=== PATIENT | female | born 1960 | race Two or more races ===

== ENCOUNTER 2019-05-26 20:34 | Inpatient (IN) | payer MEDICAID, MEDICARE, OTHER ==
[~2019-05-26] VITALS: Ht 167.6 cm; Wt 101.3 kg
--- NOTE | 2019-05-26 20:39 | PHYS DOC ---
Past History Past Medical History: Angina, Anxiety, UTI, Other Adult General Chief Complaint Chief Complaint: ".. I am having neck and upper chest pain... .." .. I ve been feeling more short of breath... ".. " I take nitro for my chest pain... ".. " But I just feel worse tonight.. ".. HPI HPI Patient is a 59 year old female who presents with above hx and complaints upper chest and neck pain. Patient states her discomfort is been persistent all day today and tonight. Patient does have a history of angina like complaints which she takes nitroglycerin. Patient denies history of heart attack. Patient has had a chemical stress test 2 years ago in [facility]. -, reportedly normal. He recently moved here from [place]. Patient has a history of elevated cholesterol. Patient denies any trauma or specific ill contacts. Patient's states sore throat also started approximately 2 days ago. Patient normally follo ws with Dr. Chaves. Review of Systems Review of Systems Constitutional: Denies fever or chills [] Eyes: Denies change in visual acuity, redness, or eye pain [] HENT: Denies nasal congestion. Complaints of sore throat [] Respiratory: Denies cough. Complaints shortness of breath [] Cardiovascular: No additional information not addressed in HPI [] GI: Denies abdominal pain, nausea, vomiting, bloody stools or diarrhea [] : Denies dysuria or hematuria [] Musculoskeletal: Denies back pain or joint pain [] Integument: Denies rash or skin lesions [] Neurologic: Denies headache, focal weakness or sensory changes [] Endocrine: Denies polyuria or polydipsia [] All other systems were reviewed and found to be within normal limits, except as documented in this note. Family History Family History Noncontributory Current Medications Current Medications See nursing for home meds Allergies Allergies Tramadol Physical Exam Physical Exam Constitutional: Moderate acute distress, non-toxic appearance. [] HENT: Normocephalic, atraumatic, bilateral external ears normal, oropharynx moist, mild postnasal drip and erythema, no oral exudates, nose mild injection of turbinates and clear rhinorrhea] Eyes: PERRLA, EOMI, conjunctiva normal, no discharge. [] Neck: Normal range of motion, no tenderness, supple, no stridor. [] Cardiovascular:Heart rate regular rhythm, no murmur []PMI to the left Lungs & Thorax: Bilateral breath sounds equal at apexes with a few scattered wheezes on auscultation [] Abdomen: Bowel sounds normal, soft, no tenderness, no masses, no pulsatile masses. []Obese. Skin: Warm, dry, no erythema, no rash. [] Back: No tenderness, no CVA tenderness. [] Extremities: No tenderness, no cyanosis, no clubbing, ROM intact, no edema. []No cording appreciated in legs Neurologic: Alert and oriented X 3, normal motor function, normal sensory function, no focal deficits noted. [] Psychologic: Affect very anxious, judgement normal, mood normal. [] EKG EKG My interpretation EKG shows a sinus rhythm at 77 beats per minute. No findings acute STEMI with contralateral changes.[] Radiology/Procedures Radiology/Procedures [][place] [address] IMAGING REPORT Signed PATIENT: BRITTNEY BOONE ACCOUNT: [id number] : 1960 LOCATION: ER AGE: 59 SEX: F EXAM STATUS: REG ER ORD. PHYSICIAN: NATY CARNEY MD REASON: pain, COUGH, H/O ASTHMA PROCEDURE: CHEST PA & LATERAL EXAM: Chest, 2 views. HISTORY: Cough. COMPARISON: None. FINDINGS: 2 views of chest are obtained. There is no infiltrate, pleural effusion or pneumothorax. The heart is normal in size. IMPRESSION: No acute pulmonary finding. Electronically signed by: Aruna Mosley MD (05/26/2019 10:24 PM) [facility] DICTATED AND SIGNED BY: ARUNA MOSLEY MD DATE: 05/26/192223 CC: NATY CARNEY MD; PCP,NO ~ Course & Med Decision Making Course & Med Decision Making Pertinent Labs and Imaging studies reviewed. (See chart for details) [] Admit to Dr. Rodriguez with Cardiology consult. Heart Score 4-5. Patient refused admission. However on discharge, Pt. decided to stay when her chest discomfort seems to be getting worse. Patient readmitted to Dr. Rodriguez with a cardiology consult Impression: 1. Chest Pain- atypical 2. Hx of Anginal Chest Pain- (Take Nitro ) 3. UTI 4. DM = glu 154 5. Sore Throat Dragon Disclaimer Dragon Disclaimer This electronic medical record was generated, in whole or in part, using a voice recognition dictation system. Departure Departure: Disposition: 01 HOME/RESIDENCE PRIOR TO ADM Condition: STABLE Dragon Disclaimer This chart was dictated in whole or in part using Voice Recognition software in a busy, high-work load, and often noisy Emergency Department environment. It may contain unintended and wholly unrecognized errors or omissions. Dragon Disclaimer This chart was dictated in whole or in part using Voice Recognition software in a busy, high-work load, and often noisy Emergency Department environment. It may contain unintended and wholly unrecognized errors or omissions. NATY CARNEY MD May 26, 2019 20:39
[2019-05-26] MEDS ORDERED: MORPHINE SULFATE 2 MG/ML DISP.SYRIN. IV PRN (21:00)
[2019-05-26] MEDS ORDERED: IV RINGERS SOLUTION,LACTATED 1,000 ML IV SCH (21:15)
[2019-05-26] MEDS ORDERED: ASPIRIN 81 MG TAB.CHEW PO ONE (21:15)
[2019-05-26 21:29] LABS: BASO % 1 % (0-3); EOS # 0.1 x10^3/uL (0.0-0.7); EOS % 2 % (0-3); HEMATOCRIT 35.8 % (36.0-47.0); HEMOGLOBIN 12.2 g/dL (12.0-15.5); LYMPH # 1.3 x10^3/uL (1.0-4.8); LYMPH % 24 % (24-48); MEAN CORPUSCULAR HEMOGLOBIN 30 pg (25-35); MEAN CORPUSCULAR HGB CONC 34 g/dL (31-37); MEAN CORPUSCULAR VOLUME 89 fL (79-100); MONO # 0.6 x10^3/uL (0.0-1.1); MONO % 12 % (0-9); NEUT # 3.3 x10^3uL (1.8-7.7); NEUT % 62 % (31-73); PLATELET COUNT 160 x10^3/uL (140-400); RED BLOOD COUNT 4.03 x10^6/uL (3.50-5.40); RED CELL DISTRIBUTION WIDTH 13.4 % (11.5-14.5); WHITE BLOOD COUNT 5.4 x10^3/uL (4.0-11.0)
[2019-05-26 21:50] LABS: ALBUMIN 3.7 g/dL (3.4-5.0); CALCIUM 9.2 mg/dL (8.5-10.1); CREATININE 0.6 mg/dL (0.6-1.0); DIRECT BILIRUBIN 0.1 mg/dL (0.0-0.2); MAGNESIUM 2.2 mg/dL (1.8-2.4); TOTAL BILIRUBIN 0.5 mg/dL (0.2-1.0)
[2019-05-26 21:51] LABS: POTASSIUM 3.5 mmol/L (3.5-5.1)
[2019-05-26] MEDS ORDERED: KETOROLAC 30 MG/ML VIAL. IVP ONE (22:00)
[2019-05-26 22:01] LABS: INFLUENZA A PATIENT NEGATIVE (NEGATIVE); INFLUENZA B PATIENT NEGATIVE (NEGATIVE)
--- NOTE | 2019-05-26 22:27 | RAD ---
EXAM: Chest, 2 views. HISTORY: Cough. COMPARISON: None. FINDINGS: 2 views of chest are obtained. There is no infiltrate, pleural effusion or pneumothorax. The heart is normal in size. IMPRESSION: No acute pulmonary finding. Electronically signed by: Aruna Camara MD (05/26/2019 10:24 PM) [facility]
[2019-05-26 22:28] LABS: AMPHETAMINE/METHAMPHETAMINE NEG (NEG); BARBITURATES NEG (NEG); BENZODIAZEPINES NEG (NEG); CANNABINOIDS NEG (NEG); COCAINE NEG (NEG); METHADONE NEG (NEG); OPIATES NEG (NEG); PHENCYCLIDINE NEG (NEG)
[2019-05-26] MEDS ORDERED: ENOXAPARIN ** NOTE DOSE ** SYRINGE SQ ONE (22:30)
[2019-05-26] MEDS ORDERED: IPRATRPIUM/ALBUTEROL 0.5/2.5MG 3 ML NEBU. ONE (22:31)
[2019-05-26 22:35] LABS: BACTERIA,URINE MOD /HPF (0-FEW); BILIRUBIN,URINE NEG (NEG); CLARITY,URINE HAZY; COLOR,URINE YELLOW; GLUCOSE,URINE NEG (NEG); NITRITE,URINE NEG (NEG); UROBILINOGEN,URINE 8 mg/dL (0.2 mg/dL)
[2019-05-26 22:36] LABS: SQUAMOUS EPITHELIAL CELL,UR OCC /LPF
[2019-05-26] MEDS ORDERED: IPRATRPIUM/ALBUTEROL 0.5/2.5MG 3 ML NEBU. NEB ONE (23:00)
[2019-05-26] MEDS ORDERED: diphenhydrAMINE ORAL ELIXIR 12.5 MG/5 ML ML PO ONE (23:30)
[2019-05-26] MEDS ORDERED: IBUPROFEN 100 MG/5 ML ORAL.SUSP. PO ONE (23:30)
[2019-05-26] MEDS ORDERED: SMZ/TMP 800/160MG TABLET. PO ONE (23:30)
[2019-05-27 00:57] VITALS: BP 119/76
--- NOTE | 2019-05-27 01:52 | EKG ---
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
[2019-05-27] MEDS ORDERED: ATOR40TA59 PO (01:56)
[2019-05-27] MEDS ORDERED: IPRA3AMP29 NEB (01:56)
[2019-05-27] MEDS ORDERED: SODIUM CHLORIDE 0.65% NASAL SPRAY 45ML BOTTLE. NS PRN (02:00)
[2019-05-27] MEDS ORDERED: ANTI-COAG MONITOR BY PHARMACY. MC PRN (03:00)
--- NOTE | 2019-05-27 04:18 | EKG ---
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
[2019-05-27 05:14] VITALS: BP 101/66
--- NOTE | 2019-05-27 07:54 | PDOC2 ---
VIRY LUNDY DISPATCHER CLERK 05/27/19 0754: CARDIAC CONSULT DATE OF CONSULT Date Of Consult DATE: 05/27/19 TIME: 07:52 REASON FOR CONSULT Reason for Consult Chest pain REFERRING PHYSICIAN Referring Physician Dr. Nuñez SOURCE Source: Chart review, Patient HPI History of Present Illness This is a 59 yo female who presented secondary to chest pain. Is here from [place] visiting son as him was recently deployed. Reports intermittent dull pain in her central, epigastric/chest region. Has had cold, cough, nasal/chest congestion for the last 4 days. Reports her throat is sore, making it difficult to breath. Had episode of vomiting yesterday. No dizziness, diaphoresis, or SOA. Reports having normal MPI 2 years ago in [place]. PAST MEDICAL HISTORY Cardiovascular: hyperipidemia Pulmonary: Asthma Renal/: UTI PAST SURGICAL HISTORY Past Surgical History: , Other (right knee surgery ) FAMILY HISTORY Family History: Hypertension SOCIAL HISTORY Smoke: No ALCOHOL: none Drugs: None Lives: with Family CURRENT MEDICATIONS Current Medications Current Medications Aspirin (Children'S Aspirin) 324 mg 1X ONCE PO Last administered on 05/26/19at 21:18; Start 05/26/19 at 21:15; Stop 05/26/19 at 21:16; Status DC Enoxaparin Sodium (Lovenox 100mg Syringe) 100 mg 1X ONCE SQ Last administered on 05/26/19at 23:29; Start 05/26/19 at 22:30; Stop 05/26/19 at 22:31; Status DC Morphine Sulfate (Morphine 2mg Syringe) 2 mg PRN Q1HR PRN IV PAIN GREATER THAN 3/10; Start 05/26/19 at 21:00 Lactated Ringer's 1,000 ml @ 1,000 mls/hr Q1H IV Last administered on 05/26/19at 21:18; Start 05/26/19 at 21:15; Stop 05/26/19 at 22:14; Status DC Ketorolac Tromethamine (Toradol 30mg Vial) 30 mg 1X ONCE IVP Last administered on 05/26/19at 22:04; Start 05/26/19 at 22:00; Stop 05/26/19 at 22:01; Status DC Albuterol/ Ipratropium (Duoneb) 3 ml 1X ONCE NEB Last administered on 05/26/19at 22:47; Start 05/26/19 at 23:00; Stop 05/26/19 at 23:01; Status DC Albuterol/ Ipratropium (Duoneb) 3 ml STK-MED ONCE .ROUTE ; Start 05/26/19 at 22:31; Stop 05/26/19 at 22:31; Status DC Trimethoprim/ Sulfamethoxazole (Bactrim Ds) 1 tab 1X ONCE PO Last administered on 05/26/19at 23:24; Start 05/26/19 at 23:30; Stop 05/26/19 at 23:31; Status DC Diphenhydramine HCl (Benadryl Oral Elixir) 25 mg 1X ONCE PO ; Start 05/26/19 at 23:30; Stop 05/26/19 at 23:31; Status DC Ibuprofen (Motrin) 200 mg 1X ONCE PO ; Start 05/26/19 at 23:30; Stop 05/26/19 at 23:31; Status DC Sodium Chloride (Saline Mist Nasal) 1 laquita PRN Q1HR PRN NS NASAL CONGESTION; Start 05/27/19 at 02:00 Influenza Virus Vaccine Quadrival (Afluria Quad 2019-20 (3yr Up) Syringe) 0.5 ml ONCE ONCE VAX IM ; Start 05/27/19 at 09:00; Stop 05/27/19 at 09:01 Enoxaparin Sodium (Lovenox 100mg Syringe) 100 mg Q12HR SQ ; Start 05/27/19 at 09:00 Aspirin (Children'S Aspirin) 81 mg DAILYWBKFT PO ; Start 05/27/19 at 08:00 Info (Anti-Coagulation Monitoring By Pharmacy) 1 each PRN DAILY PRN MC SEE COMMENTS; Start 05/27/19 at 03:00 Active Scripts Active Reported Duoneb 0.5-3(2.5) Mg/3 Ml (Albuterol/Ipratropium) 3 Ml Ampul.neb 3 Ml NEB QID Atorvastatin Calcium 40 Mg Tablet 1 Tab PO DAILY ALLERGIES Allergies: Coded Allergies: tramadol (Verified Allergy, Intermediate, RASH, 05/26/19) ROS Review of Systems 14 point ROS conducted with pertinent positives noted above in HPI. PHYSICAL EXAM General: Alert, Oriented X3, Cooperative, No acute distress HEENT: Atraumatic, Mucous membr. moist/pink Lungs: Clear to auscultation Heart: Regular rate, Normal S1, Normal S2 Abdomen: Soft, No tenderness Extremities: No edema, Normal pulses Skin: No breakdown Neuro: Normal speech, Normal tone Psych/Mental Status: Mental status NL, Mood NL MUSCULOSKELETAL: Osteoarthritic changes both hands VITALS Vital Signs Vital Signs Date Time Temp Pulse Resp B/P (MAP) Pulse Ox O2 Delivery O2 Flow Rate FiO2 05/27/19 05:14 98.1 70 20 101/66 (78) 94 Room Air LABS LABS Laboratory Tests Test 05/26/19 20:55 05/26/19 21:05 05/26/19 21:56 05/27/19 04:15 White Blood Count 5.4 x10^3/uL (4.0-11.0) Red Blood Count 4.03 x10^6/uL (3.50-5.40) Hemoglobin 12.2 g/dL (12.0-15.5) Hematocrit 35.8 % (36.0-47.0) Mean Corpuscular Volume 89 fL (79-100) Mean Corpuscular Hemoglobin 30 pg (25-35) Mean Corpuscular Hemoglobin Concent 34 g/dL (31-37) Red Cell Distribution Width 13.4 % (11.5-14.5) Platelet Count 160 x10^3/uL (140-400) Neutrophils (%) (Auto) 62 % (31-73) Lymphocytes (%) (Auto) 24 % (24-48) Monocytes (%) (Auto) 12 % (0-9) Eosinophils (%) (Auto) 2 % (0-3) Basophils (%) (Auto) 1 % (0-3) Neutrophils # (Auto) 3.3 x10^3uL (1.8-7.7) Lymphocytes # (Auto) 1.3 x10^3/uL (1.0-4.8) Monocytes # (Auto) 0.6 x10^3/uL (0.0-1.1) Eosinophils # (Auto) 0.1 x10^3/uL (0.0-0.7) Basophils # (Auto) 0.0 x10^3/uL (0.0-0.2) Prothrombin Time 10.0 SEC (9.4-11.4) Prothromb Time International Ratio 1.0 (0.9-1.1) Activated Partial Thromboplast Time 24 SEC (23-33) D-Dimer (Salome) 0.40 mg/L (0.00-0.50) Sodium Level 145 mmol/L (136-145) Potassium Level 3.5 mmol/L (3.5-5.1) Chloride Level 107 mmol/L (98-107) Carbon Dioxide Level 24 mmol/L (21-32) Anion Gap 14 (6-14) Blood Urea Nitrogen 12 mg/dL (7-20) Creatinine 0.6 mg/dL (0.6-1.0) Estimated GFR (Cockcroft-Gault) 103.0 Glucose Level 154 mg/dL (70-99) Calcium Level 9.2 mg/dL (8.5-10.1) Magnesium Level 2.2 mg/dL (1.8-2.4) Total Bilirubin 0.5 mg/dL (0.2-1.0) Direct Bilirubin 0.1 mg/dL (0.0-0.2) Aspartate Amino Transf (AST/SGOT) 26 U/L (15-37) Alanine Aminotransferase (ALT/SGPT) 33 U/L (14-59) Alkaline Phosphatase 104 U/L (46-116) Creatine Kinase 139 U/L (26-192) Troponin I Quantitative < 0.017 ng/mL (0-0.055) < 0.017 ng/mL (0-0.055) UC-Omj-C-Type Natriuretic Peptide 22 pg/mL (0-124) Total Protein 7.0 g/dL (6.4-8.2) Albumin 3.7 g/dL (3.4-5.0) Lipase 85 U/L (73-393) Influenza Type A (Rapid) Negative (NEGATIVE) Influenza Type B (Rapid) Negative (NEGATIVE) Group A Streptococcus Rapid Negative (NEGATIVE) Urine Collection Type Unknown Urine Color Yellow Urine Clarity Hazy Urine pH 6.0 Urine Specific [place] >=1.030 Urine Protein 30 mg/dl (NEG-TRACE) Urine Glucose (UA) Neg mg/dL (NEG) Urine Ketones (Stick) Neg mg/dL (NEG) Urine Blood Large (NEG) Urine Nitrite Neg (NEG) Urine Bilirubin Neg (NEG) Urine Urobilinogen Dipstick 8 mg/dL (0.2 mg/dL) Urine Leukocyte Esterase Small (NEG) Urine RBC 11-20 /HPF (0-2) Urine WBC 5-10 /HPF (0-4) Urine Squamous Epithelial Cells Occ /LPF Urine Bacteria Mod /HPF (0-FEW) Urine Mucus Slight /LPF Urine Opiates Screen Neg (NEG) Urine Methadone Screen Neg (NEG) Urine Barbiturates Neg (NEG) Urine Phencyclidine Screen Neg (NEG) Urine Amphetamine/Methamphetamine Neg (NEG) Urine Benzodiazepines Screen Neg (NEG) Urine Cocaine Screen Neg (NEG) Urine Cannabinoids Screen Neg (NEG) Urine Ethyl Alcohol Neg (NEG) ASSESSMENT/PLAN Assessment/Plan 1. Chest/epigastric pain, atypical. AMI ruled out. Reports normal stress test 2 years ago in [place]. Most probable GI in nature 2. Hyperlipidemia; statin 3. Asthma 4. URI, bronchitis Recommendations ASA Lipids PPI Echo to assess LV systolic function If echo WNL, may discharge from a CV standpoint SIMON MENSAH MD 05/28/19 0814: CARDIAC CONSULT ASSESSMENT/PLAN Assessment/Plan Late entry for 05/27/2019 Patient seen and examined. Agree with above nurse practitioner note. No significant cardiac symptoms at this time. EKG, enzymes and echocardiogram are within normal limits. Follow-up with primary care physician Thank you for this consultation. Please call with any further questions. VIRY LUNDY APRN May 27, 2019 07:54 SIMON MENSAH MD May 28, 2019 08:14
[2019-05-27] MEDS ORDERED: ASPIRIN 81 MG TAB.CHEW PO SCH (08:00)
[2019-05-27] MEDS ORDERED: FLU VAX QS 2019-20 (36MOS+)/PF 0.5 ML SYRINGE. VAX IM ONE (09:00)
[2019-05-27] MEDS ORDERED: ENOXAPARIN ** NOTE DOSE ** SYRINGE SQ SCH (09:00)
[2019-05-27 10:15] VITALS: BP 101/65
[2019-05-27] MEDS ORDERED: ALBUTEROL SULFATE 2.5 MG/3 ML NEBU. NEB SCH (12:00)
[2019-05-27] MEDS ORDERED: IPRATROPIUM BROMIDE 0.5 MG/2.5 ML NEBU. NEB ONE (12:30)
[2019-05-27 14:11] LABS: THYROID STIM HORMONE (TSH) 2.523 uIU/mL (0.358-3.740)
[2019-05-27 14:29] VITALS: BP 97/63
--- NOTE | 2019-05-27 15:38 | CARD ---
MR#: [id number] Date of Study: 05/27/2019 Ordering Physician: VARUN NICOLE, Referring Physician: VARUN NICOLE Tech: Sandra Fry RDCS APPROVED REPORT EXAM: Two-dimensional and M-mode echocardiogram with Doppler and color Doppler. Other Information Quality : Good INDICATION Chest Pain 2D DIMENSIONS RVDd2.0 (2.9-3.5cm)Left Atrium(2D)3.5 (1.6-4.0cm) IVSd1.1 (0.7-1.1cm)Aortic Root(2D)3.3 (2.0-3.7cm) LVDd4.9 (3.9-5.9cm)PWd1.0 (0.7-1.1cm) LVDs3.5 (2.5-4.0cm)FS (%) 28.0 % SV61.5 mlLVEF(%)55.0 (>50%) Aortic Valve AoV Peak Lennox.144.5cm/sAoV VTI25.6cm AO Peak GR.8.3mmHgAO Mean GR.5mmHg YUN (VTI)2.89cm2 Mitral Valve MV E Krbrnwsw29.8cm/sMV DECEL [id number] MV A Ylgjbiit79.8cm/sE/A Ratio1.1 Tricuspid Valve TR P. Votntrqs874vw/sRAP [id number] TR Peak Gr.65wsKpNDCS72utAd LEFT VENTRICLE The left ventricle is normal size. There is normal left ventricular wall thickness. The left ventricu lar systolic function is normal. The Ejection Fraction is 55-60%. There is normal LV segmental wall m otion. The left ventricular diastolic function and filling is normal for age. RIGHT VENTRICLE The right ventricle is normal size. The right ventricular systolic function is normal. ATRIA The left atrium size is normal. The right atrium size is normal. The interatrial septum is intact wit h no evidence for an atrial septal defect or patent foramen ovale as noted on 2-D or Doppler imaging. AORTIC VALVE The aortic valve is normal in structure and function. Doppler and Color Flow revealed no significant aortic regurgitation. There is no significant aortic valvular stenosis. MITRAL VALVE The mitral valve is normal in structure and function. There is no evidence of mitral valve prolapse. There is no mitral valve stenosis. Doppler and Color Flow revealed no mitral valve regurgitation note d. TRICUSPID VALVE The tricuspid valve is normal in structure and function. Doppler and Color Flow revealed trace tricus pid regurgitation. The PA pressure was estimated at 29 mmHg. There is no tricuspid valve stenosis. PULMONIC VALVE The pulmonary valve is normal in structure and function. Doppler and Color Flow revealed trace to mil d pulmonic valvular regurgitation. There is no pulmonic valvular stenosis. GREAT VESSELS The aortic root is normal in size. The ascending aorta is normal in size. The IVC is normal in size a nd collapses >50% with inspiration. PERICARDIAL EFFUSION There is no evidence of significant pericardial effusion. Critical Notification Critical Value: No <Conclusion> The left ventricular systolic function is normal. The Ejection Fraction is 55-60%. There is normal LV segmental wall motion. Doppler and Color Flow revealed trace tricuspid regurgitation. The PA pressure was estimated at 29 mmHg. There is no evidence of significant pericardial effusion. Signed by : Stephen Higgins, Electronically Approved : 05/27/2019 15:38:28
[2019-05-27] MEDS ORDERED: CEFD300C PO (15:54)
[2019-05-27] MEDS ORDERED: AZIT500T2 PO (15:54)
[2019-05-27] MEDS ORDERED: IPRATRPIUM/ALBUTEROL 0.5/2.5MG 3 ML NEBU. NEB SCH (16:00)
[2019-05-27] MEDS ORDERED: IPRATROPIUM BROMIDE 0.5 MG/2.5 ML NEBU. NEB SCH (16:00)
--- NOTE | 2019-05-27 16:28 | SSS ---
ADMIT DATE: 05/27/2019 HISTORY OF PRESENT ILLNESS: The patient is a 59-year-old female patient who presented to the Emergency Room complaining of chest pain. She has also some shortness of breath. She took her nitroglycerin, but they did not help and, therefore, she came to the Emergency Room. She denied any previous coronary artery disease. She apparently has a chemical stress test done 2 years ago in [place] and was negative. She is visiting her son and ohishskz-sn-tts as her czlgxrhw-ow-dal is deployed to [place]. She denied any nausea or vomiting. Denied any diaphoresis. She stated that her sore throat also started about approximately 2 days ago. She was extensively investigated in the Emergency Room and had EKG. Her EKG showed that she was in sinus rhythm at 77 beats per minute, no acute finding of ST segment elevation. She was admitted and has had 2 sets of cardiac enzymes that ruled out acute myocardial infarction. She was seen in consultation by the Cardiology team and has had an echocardiogram done, which showed that her left ventricular systolic function is normal, ejection fraction is 55-60%. She has normal left ventricular segmental wall motion. Doppler and color flow revealed trace tricuspid regurgitation. Pulmonary artery pressure was estimated at 29 mmHg. There is no evidence of significant pericardial effusion; therefore, the patient was discharged home to continue her current medication. We added Zithromax and cefdinir for possible acute bronchopneumonia and also UTI. PAST MEDICAL HISTORY: Remarkable for hyperlipidemia and recurrent UTI. PAST SURGICAL HISTORY: Unremarkable. FAMILY HISTORY: Unremarkable. SOCIAL HISTORY: She does not smoke, drink alcohol, or use any recreational drugs. ALLERGIES: She is allergic to TRAMADOL. MEDICATIONS: She is on ipratropium bromide, albuterol sulfate for DuoNeb by nebulizer 4 times a day, atorvastatin, and calcium 40 mg at bedtime. REVIEW OF SYSTEMS: As per history of present illness. PHYSICAL EXAMINATION: GENERAL: When I examined her, she was sitting at the edge of the bed comfortably in no apparent distress. She has had no further episode of chest pain, somewhat pale, no jaundice, cyanosis or thyromegaly. No jugular venous distention. No limb edema. VITAL SIGNS: Her heart rate was 79, blood pressure was 101/65, temperature was 98, respiratory rate 20, and oxygen saturation was 96% on room air. HEAD, EYES, EARS, NOSE, AND THROAT: Normocephalic, atraumatic. NECK: Supple. HEART: Normal first and second heart sounds. No gallop or murmur. CHEST: Clear to auscultation. No crepitation or rhonchi. ABDOMEN: Distended, soft, and nontender. No guarding or rigidity. No organomegaly. All hernial orifice intact. Bowel sounds normal. NEUROLOGIC: She is awake, alert, responding appropriately. All her cranial nerves are intact. EXTREMITIES: She moves extremities without difficulty. She ambulates without assistance or assistive devices. LABORATORY DATA: Her lab work on admission showed a white cell count of 5400, hemoglobin 12, hematocrit 36, MCV 89, and platelet count of 160,000. Her chemistry showed a serum sodium of 145, potassium 3.5, chloride 107, bicarbonate 24, anion gap of 14, BUN 12, creatinine 0.6, estimated GFR was 103 mL per minute. Her glucose 154, calcium was 9.2, magnesium 2.2. Total bilirubin, AST, ALT, alkaline phosphatase were normal. Total CK was 139. She has 2 sets of cardiac enzymes, showed troponin to be less than 0.017. Her total protein was 7, albumin was 3.7. Her serum triglycerides were 221, total cholesterol 142, LDL was 74, VLDL was 44, HDL was 24, and ratio was 5. Her lipase was 85 and TSH was 2.5-3. Her prothrombin time, INR, aPTT, and D-dimer are all normal. Urinalysis essentially showed the urine was yellow, hazy with a pH of 6, specific gravity of 1.032. There was a small amount of protein, negative for glucose, ketones, large amount of blood, negative for nitrite, small amount of leukocyte esterase, 11-20 rbc's, and 5-10 wbc's, moderate amount of bacteria. Her urine tox screen was negative. Her influenza A and B and group A Streptococcus rapid test was negative. Her chest x-ray showed that there is no infiltrate, pleural effusion, or pneumothorax. The heart is normal in size. ASSESSMENT AND PLAN: The patient was discharged home to continue on azithromycin for Z-ROSALBA and cefdinir 300 mg twice a day for 5 days. She should continue also on atorvastatin for hyperlipidemia and ipratropium bromide, albuterol for her bronchial asthma. FINAL DISCHARGE DIAGNOSES: 1. Chest pain, atypical, acute myocardial infarction ruled out. 2. Bronchial asthma, hyperlipidemia, acute bronchitis, and questionable urinary tract infection. VARUN NICOLE MD DR: DENNIS/kat JOB#: [id number] / [id number]
== END 2019-05-27 16:15 | disposition home or self-care (01) | DRG 205 ==
LOC: ER 20:34 → 1 SOUTH 23:00
PROVIDERS: ADMIT Internal Medicine; ATTEND Internal Medicine
DX: M94.0 Chondrocostal junction syndrome [Tietze] (principal); J18.0 Bronchopneumonia, unspecified organism; N39.0 Urinary tract infection, site not specified; E78.5 Hyperlipidemia, unspecified; J45.909 Unspecified asthma, uncomplicated; J06.9 Acute upper respiratory infection, unspecified; J20.9 Acute bronchitis, unspecified; E78.00 Pure hypercholesterolemia, unspecified; F41.9 Anxiety disorder, unspecified; Z87.440 Personal history of urinary (tract) infections; Z88.8 Allergy status to other drugs, medicaments and biological substances; Z82.49 Family history of ischemic heart disease and other diseases of the circulatory system
CPT/HCPCS: 36415; 71046; 80048; 80061; 80076; 80307; 81001; 82550; 83690; 83735; 83880; 84443; 84484; 85025; 85379; 85610; 85730; 87070; 87086; 87205; 87804; 87880; 93005; 93306; 94640; 96361; 96372; 96374; J1650; J1885; J7120; J7613; J7620; J7644; 99285-25